=== PATIENT | female | born 1940 | race Caucasian/White ===

== ENCOUNTER → 2016-10-26 | Outpatient (CLI) | payer OTHER, MEDICARE ==
--- NOTE | 2016-10-26 20:13 | MA ---
Screening Digital Mammogram, With Tomosynthesis and iCAD Indication: Routine screening. Mother diagnosed with breast cancer in her late 70s. Technique: Standard digital CC projections were obtained. Digital breast tomosynthesis was performed in the MLO projection, with reconstruction at 1.0-mm slice thickness. Composite MLO views were melody nstructed. This examination was processed by the iCAD computer-aided detection system. Comparison: October 2015, September 2014, and August 2012. Breast Density: Type B. Findings: CAD was reviewed. A 6-mm focal asymmetry, with minimal architectural distortion, resides in the deep upper outer left breast 1 to 2 o'clock position. The right and left mammograms are other [place] negative. Impression: New focal asymmetry versus dense superimposed fibroglandular tissue in the upper outer le ft breast. BI-RADS 0: Needs additional imaging evaluation. Recommendation: Left breast ultrasound. [facility] will send a result letter to the patient. Negative mammography should not preclude additional workup of a clinically suspicious finding. The patient's information is entered into a reminder system with a target due date for her next mammo gram.
== END ==
LOC: FIMAGING 10:05
DX: Z12.31 Encounter for screening mammogram for malignant neoplasm of breast (principal); Z80.3 Family history of malignant neoplasm of breast
CPT/HCPCS: G0202

== ENCOUNTER → 2016-11-04 | Outpatient (CLI) | payer OTHER, MEDICARE ==
--- NOTE | 2016-11-04 15:57 | US ---
Left Breast Ultrasound History: Possible new focal asymmetry upper left breast Comparison: Screening mammogram October 26, 2016 Technique: I first performed a directed physical examination. This was followed by ultrasound exam with a high frequency linear transducer. Findings: Physical examination of the upper left breast is negative. Ultrasound is negative. A possib le correlative abnormality initially identified by the rn palliative is not confirmed by myself or the rn palliative on repeat imaging. The mammographic density is probably stable since 2013. Impression: Negative sonogram and physical exam. Probably benign mammographic asymmetry upper left br east. Recommendation: Six-month follow up left diagnostic mammogram (with tomosynthesis) to ensure stabilit y. BI-RADS 3. Probably benign mammographic finding. Results and recommendation discussed with the patient at the time of the examination, who is in agree ment with the plan.
== END ==
LOC: FIMAGING 15:11
PROVIDERS: ATTEND Internal Medicine
DX: N64.89 Other specified disorders of breast (principal)

== ENCOUNTER → 2017-04-08 | Outpatient (CLI) | payer OTHER, MEDICARE | LOC: FIMAGING 13:57 | PROVIDERS: ATTEND Internal Medicine | DX: Z03.89 Encounter for observation for other suspected diseases and conditions ruled out (principal) | CPT/HCPCS: G0206 ==

== ENCOUNTER → 2017-09-06 | Outpatient (CLI) | payer OTHER, MEDICARE | LOC: FIMAGING 15:08 | PROVIDERS: ATTEND Internal Medicine | DX: Z13.820 Encounter for screening for osteoporosis (principal); M85.80 Other specified disorders of bone density and structure, unspecified site ==

== ENCOUNTER → 2017-10-19 | Outpatient (CLI) | payer OTHER, MEDICARE | LOC: BMCIMAGING 11:26 | PROVIDERS: ATTEND Internal Medicine | DX: R07.9 Chest pain, unspecified (principal); J98.11 Atelectasis ==

== ENCOUNTER → 2017-10-27 | Outpatient (CLI) | payer OTHER, MEDICARE | LOC: FIMAGING 14:21 | PROVIDERS: ATTEND Internal Medicine | DX: Z12.31 Encounter for screening mammogram for malignant neoplasm of breast (principal); Z80.3 Family history of malignant neoplasm of breast ==

== ENCOUNTER → 2018-10-09 | Outpatient (CLI) | payer OTHER, MEDICARE | LOC: BMCIMAGING 10:24 | PROVIDERS: ATTEND Internal Medicine | DX: R07.81 Pleurodynia (principal); M54.9 Dorsalgia, unspecified ==

== ENCOUNTER → 2018-11-28 | Outpatient (CLI) | payer OTHER, MEDICARE | LOC: FIMAGING 10:05 | PROVIDERS: ATTEND Internal Medicine | DX: Z12.31 Encounter for screening mammogram for malignant neoplasm of breast (principal); Z80.3 Family history of malignant neoplasm of breast ==